=== PATIENT | male | born 1945 | race Caucasian/White ===

== ENCOUNTER → 2020-04-04 | Outpatient (CLI) | payer MEDICARE ==
[~2020-04-04] MED LIST: LISINOPRIL10 MG PO; PRILOSEC 20 MG20 MG PO
== END ==
LOC: M.CT 12:14
PROVIDERS: ATTEND Registered Nurse Diabetes Educator
DX: K44.9 Diaphragmatic hernia without obstruction or gangrene (principal); K57.32 Diverticulitis of large intestine without perforation or abscess without bleeding